=== PATIENT | male | born 1985 | race Two or more races ===

== ENCOUNTER → 2017-01-02 | Outpatient (REF) | payer OTHER | LOC: M SMT 16:44 | PROVIDERS: ATTEND Nurse Practitioner Family | DX: N50.811 Right testicular pain (principal) ==

== ENCOUNTER → 2017-01-09 | Outpatient (CLI) | payer OTHER ==
--- NOTE | 2017-01-10 05:21 | REP ---
Clinical: Scrotal pain. Prior vasectomy. Technique: Real time llamas scale and color Doppler evaluation using linear high frequency transducer. Findings: With the exception of a few left epididymal head cysts ranging between 3 and 5 mm, the bilateral testicles and epididymi are normal in contour, size, echogenicity, and vascularity. There is no evidence for mass lesion, infectious/inflammatory process, or torsion. Few scattered intratesticular calcifications are identified without evidence for microlithiasis. A moderate right hydrocele and minimal left hydrocele noted. Right testicle measures 4.7 x 2.4 x 3.3 cm. Left testicle measures 4.6 x 2.3 x 3.4 cm. Impression: Moderate right hydrocele and minimal left hydrocele. Few left epididymal head cysts up to 5 mm. Otherwise normal scrotal ultrasound. Signed by Tommy Juárez MD 01/10/2017 05:12 A
== END ==
LOC: M SMT 09:21
PROVIDERS: ATTEND Nurse Practitioner Family
DX: N43.3 Hydrocele, unspecified (principal)